=== PATIENT | male | born 1985 | race African-American/Black ===

== ENCOUNTER 2021-09-09 14:25 | Emergency (ER) | payer OTHER, SELFPAY ==
--- NOTE | 2021-09-09 14:34 | ED.WOUNDLAC ---
HPI - Wound/Laceration General Chief Complaint: Wound/Laceration Stated Complaint: cut right 2nd finger Time Seen by Provider: 09/09/21 14:37 Source: patient Mode of arrival: ambulatory Limitations: no limitations History of Present Illness HPI narrative: 36-year-old female presented for complaint of laceration to right index finger. She states she cut the finger on a can just prior to arrival. She rinsed it and applied pressure. Denies numbness, tingling, weakness of the hand. Tetanus is up-to-date 12/2020. Related Data Allergies Allergy/AdvReac Type Severity Reaction Status Date / Time No Known Allergies Allergy Verified 09/09/21 14:45 Review of Systems Review of Systems: CONSTITUTIONAL: Denies fever, chills, or sweats. EYES: Denies visual changes CARDIOVASCULAR: Denies chest pain, palpitations, or edema. RESPIRATORY: Denies cough or dyspnea. GASTROINTESTINAL: Denies abdominal pain GENITOURINARY: Denies dysuria or hematuria. SKIN: laceration right index MUSCULOSKELETAL: Denies back pain, joint pain, or myalgia. NEUROLOGIC: Denies headache, numbness, tingling, or weakness. PSYCH: Denies depression or anxiety. PMFSH Comments At time of signature, I have reviewed and agree with nursing past medical, surgical, social and family history unless otherwise noted. Please see nursing chart for further information. There is no relevant family history pertinent to the presenting complaint Exam Narrative: GENERAL: Well-appearing HEAD: Normocephalic, atraumatic. EYES: conjunctivae clear, and EOMI. ENT: Mucous membranes moist. Oropharynx without edema, erythema or lesions. NECK: Supple. No lymphadenopathy CHEST: Clear to auscultation. No respiratory distress. HEART: Regular rate and rhythm. SKIN: Warm, dry. L-shaped laceration with flap to right 2nd digit finger tip. 0.5cmx0.5cm bleeding controlled. NEURO: Alert and oriented x3. PSYCH: Normal mood and affect Course Course Emergency Course: Patient is aware of diagnosis, understands and agrees to treatment plan. Anticipatory guidance given. Patient agrees to follow-up as directed and is aware of reasons to seek care at the emergency department. Portions of this record may have been created with voice recognition software Level of Care: Express Care Visit Vital Signs Vital signs: Reviewed Procedures Laceration Laceration 1: Date: 09/09/21 Site: hand Side (If applicable): right Description: flap and irregular Depth: simple, single layer Local Anesthetic: none Pre-repair: wound explored ====== Skin Level ====== Skin layer closed with: dermabond and steri strips ====== Subcutaneous Layer ====== ====== Muscle Layer ====== ====== Tendon Layer ====== MDM - Wound/Laceration MDM Narrative Medical decision making narrative: Lac repaired with dermabond and steri strips, she is going to [place] tomorrow, so abx will be prescribed in case of s/s infection. She v/u. Differential Diagnosis Differential diagnosis: Likely laceration, abrasion and avulsion of skin Discharge Plan Discharge Clinical Impression: Laceration Patient Disposition: Home, Self-Care Condition: Stable Instructions: Antibiotic Form, Finger Laceration (ED) Additional Instructions: Keep the area clean and dry You can Keep it open to air but avoid contamination Steri strips will roll up, you can trim the edges Watch for worsening symptoms including pain, redness, swelling, streaking, pus/drainage, fever. Go to the ER with any of these symptoms or concerns. Follow up with primary care provider in 1-2 weeks as needed. Prescriptions: New cephalexin 500 mg capsule 500 mg PO Q12H 5 Days Qty: 10 RF: 0 Follow-up/Referrals: UNKNOWN,DOCTOR [Primary Care Provider] - Time of Disposition: 15:07
[2021-09-09 14:36] VITALS: BP 115/78; PULSE 79; RESP 16; TEMP 37.2; O2SAT 100
== END 2021-09-09 15:15 | disposition home or self-care (01) ==
PROVIDERS: Emergency Provider Nurse Practitioner Family
DX: S61.210A Laceration without foreign body of right index finger without damage to nail, initial encounter (principal); W45.8XXA Other foreign body or object entering through skin, initial encounter
CPT/HCPCS: 12001; 99213; G0463